=== PATIENT | female | born 1950 | race Caucasian/White ===

== ENCOUNTER 2023-11-17 21:28 | Emergency (ER) | payer MEDICARE, BC ==
[~2023-11-17] VITALS: Ht 165.1 cm; Wt 52.2 kg
[2023-11-17 21:50] VITALS: O2SAT 100
== END 2023-11-17 22:15 | disposition left against medical advice (07) ==
LOC: ER 21:34
DX: M25.532 Pain in left wrist (principal); M79.89 Other specified soft tissue disorders; Z53.21 Procedure and treatment not carried out due to patient leaving prior to being seen by health care provider
CPT/HCPCS: A4606; A4663